=== PATIENT | male | born 1970 | race Caucasian/White ===

== ENCOUNTER 2022-08-13 06:27 | Day surgery (SDC) | payer OTHER ==
[~2022-08-13] VITALS: Ht 190.5 cm; Wt 90.7 kg
[2022-08-13] MEDS ORDERED: diphenhydrAMINE 50 MG/ML VIAL ONE (07:24)
[2022-08-13] MEDS ORDERED: LIDOCAINE 2% 100 MG/5 ML UJET TP ONE (07:24)
[2022-08-13] MEDS ORDERED: fentaNYL citrate 0.05 MG/ML VIAL ONE (07:24)
[2022-08-13] MEDS ORDERED: MIDAZOLAM 2 MG/2 ML VIAL ONE ×2 (07:24)
[2022-08-13] MEDS ORDERED: fentaNYL citrate 0.05 MG/ML VIAL IVP ONE (08:00)
[2022-08-13] MEDS ORDERED: MIDAZOLAM 2 MG/2 ML VIAL IVP ONE (08:00)
== END 2022-08-13 08:24 | disposition home or self-care (01) ==
LOC: MMU 06:27 → MOR 06:27
PROVIDERS: ATTEND Internal Medicine Gastroenterology
DX: Z12.11 Encounter for screening for malignant neoplasm of colon (principal); K64.8 Other hemorrhoids; F32.A Depression, unspecified; N18.2 Chronic kidney disease, stage 2 (mild); Z80.51 Family history of malignant neoplasm of kidney; Z20.822 Contact with and (suspected) exposure to COVID-19; Z79.899 Other long term (current) drug therapy
CPT/HCPCS: 45378; 87426; J2250; J3010; J1200